=== PATIENT | female | born 1935 | race Asian ===

== ENCOUNTER 2020-07-11 21:09 | Emergency (ER) | payer BC ==
[~2020-07-11] VITALS: Ht 149.9 cm; Wt 46.4 kg
[2020-07-11] MEDS ORDERED: ACETAMINOPHEN ES 500 MG TABLET ONE (21:25)
[2020-07-11] MEDS ORDERED: ACETAMINOPHEN ES 500 MG TABLET PO ONE (21:30)
[2020-07-11 21:54] VITALS: BP 128/77
--- NOTE | 2020-07-11 21:54 | NUR ---
Patient discharged to home in stable condition. Written and verbal after care instructions given. Patient verbalizes understanding of instructions. Stressed follow up or return to ER for worsening s/s. Ambulated from ER with stable gait. All belongings with patient. VSS
== END 2020-07-11 21:55 | disposition home or self-care (01) ==
LOC: ER 21:12
DX: M25.512 Pain in left shoulder (principal); Z91.81 History of falling; E11.9 Type 2 diabetes mellitus without complications
CPT/HCPCS: 73030; A4663; A9150

== ENCOUNTER 2020-07-23 20:52 | Emergency (ER) | payer BC ==
[~2020-07-23] VITALS: Ht 149.9 cm; Wt 45.4 kg
--- NOTE | 2020-07-23 21:08 | NUR ---
Dr. Goldstein at bedside for MSE.
[2020-07-23] MEDS ORDERED: HYDROCODONE/APAP 5-325MG TABLET PO ONE (21:15)
[2020-07-23] MEDS ORDERED: HYDROCODONE/APAP 5-325MG TABLET ONE (21:18)
--- NOTE | 2020-07-23 21:26 | NUR ---
Pt out of ER for CT.
[2020-07-23 21:32] LABS: BASOPHILS # (AUTO) 0.1 K/uL (0.0-8.0); BASOPHILS % (AUTO) 1.2 % (0.0-2.0); EOSINOPHILS # (AUTO) 0.7 K/uL (0.0-0.7); EOSINOPHILS % (AUTO) 10.9 % (0.0-7.0); HEMATOCRIT 38.3 % (31.2-41.9); HEMOGLOBIN 12.7 g/dL (10.9-14.3); LYMPHOCYTES % (AUTO) 31.9 % (20.5-51.5); MEAN CORPUSCULAR HEMOGLOBIN 30.7 uug (24.7-32.8); MEAN CORPUSCULAR HGB CONC 33 g/dL (32.3-35.6); MEAN CORPUSCULAR VOLUME 92.6 fL (75.5-95.3); MONOCYTES # (AUTO) 0.5 K/uL (2.0-10.0); MONOCYTES % (AUTO) 7.4 % (0.0-11.0); NEUTROPHILS # (AUTO) 3.1 K/uL (1.8-8.9); NEUTROPHILS % (AUTO) 48.6 % (38.5-71.5); PLATELET COUNT (AUTO) 286 K/uL (179-408); RED BLOOD CELL COUNT(AUTO) 4.13 MIL/uL (3.63-4.92); WHITE BLOOD COUNT (AUTO) 6.4 K/uL (3.8-11.8)
[2020-07-23 21:38] LABS: CREATININE 1.3 mg/dL (0.6-1.3); POTASSIUM 3.7 mmol/L (3.5-5.1)
[2020-07-23 21:43] LABS: BILIRUBIN,DIRECT 0.1 mg/dL (0.0-0.2); BILIRUBIN,TOTAL 0.3 mg/dL (0.2-1.0); TOTAL PROTEIN, SERUM 7.3 g/dL (6.4-8.2)
--- NOTE | 2020-07-23 21:45 | NUR ---
Pt back to ER from CT.
[2020-07-23 21:50] LABS: THYROID STIMULATING HORMONE 2.038 mIU/mL (0.358-3.740)
[2020-07-23] MEDS ORDERED: MAGNESIUM OXIDE 400 MG TABLET PO ONE (22:00)
--- NOTE | 2020-07-23 22:02 | NUR ---
Pt provided urine sample, sent to lab.
[2020-07-23] MEDS ORDERED: MAGNESIUM OXIDE 400 MG TABLET ONE (22:11)
[2020-07-23 22:17] LABS: *BILIRUBIN,URIN NEGATIVE (NEGATIVE); *BLOOD, URINE NEGATIVE (NEGATIVE); *CLARITY,URINE CLEAR (CLEAR); *COLOR,URINE YELLOW (YELLOW); *KETONES,URINE NEGATIVE (NEGATIVE); *UROBILINOGEN,URINE 0.2 E.U./dl (NORMAL); LEUKOCYTE ESTERASE ,URINE NEGATIVE (NEGATIVE); NITRITE, URINE NEGATIVE (NEGATIVE); UGLUCOSE NEGATIVE (NEGATIVE)
--- NOTE | 2020-07-23 22:37 | NUR ---
Patient discharged to home in stable condition. Written and verbal after care instructions given. Patient verbalizes understanding of instructions. Stressed follow up or return to ER for worsening s/s. Patient out of ER with steady gait, no acute signs of distress, VSS, all belongings taken, provided with copies and CD of diagnostic procedures, to be driven home by daughter via private vehicle.
[2020-07-23 22:40] VITALS: BP 140/50
== END 2020-07-23 22:44 | disposition home or self-care (01) ==
LOC: ER 20:54
DX: S43.402A Unspecified sprain of left shoulder joint, initial encounter (principal); W10.9XXA Fall (on) (from) unspecified stairs and steps, initial encounter; Y92.89 Other specified places as the place of occurrence of the external cause; S09.90XA Unspecified injury of head, initial encounter; E83.42 Hypomagnesemia; I10 Essential (primary) hypertension; E11.9 Type 2 diabetes mellitus without complications; G20 Parkinson's disease; Z72.0 Tobacco use; Z95.1 Presence of aortocoronary bypass graft; E78.5 Hyperlipidemia, unspecified; R94.31 Abnormal electrocardiogram [ECG] [EKG]; M50.30 Other cervical disc degeneration, unspecified cervical region
CPT/HCPCS: 36415; 70030-TC; 70450; 71045; 72125; 73060; 83735; 84443; 85025; 93005; A4663

== ENCOUNTER 2020-11-27 18:39 | Emergency (ER) | payer BC, OTHER ==
[~2020-11-27] VITALS: Ht 147.3 cm; Wt 45.4 kg
[2020-11-27] MEDS ORDERED: FLUCONAZOLE 100 MG TABLET PO ONE (19:00)
[2020-11-27] MEDS ORDERED: ONDANSETRON ODT 4 MG TAB.RAPDIS SL ONE (19:00)
--- NOTE | 2020-11-27 19:02 | NUR ---
PT IS IN ROOM #2A. DR MULLIGAN EVALUATED THE PT.
[2020-11-27] MEDS ORDERED: ONDANSETRON HCL 4 MG TABLET ONE (19:21)
[2020-11-27] MEDS ORDERED: FLUCONAZOLE 100 MG TABLET ONE (19:21)
[2020-11-27] MEDS ORDERED: ONDANSETRON ODT 4 MG TAB.RAPDIS ONE (19:22)
--- NOTE | 2020-11-27 19:25 | NUR ---
Pt w/in from home, came in with dtr, c/o weakness and vaginal itching x few days [employer]. Pt is diabetic, blood sugar: 86. AO x 4 at this time. Not in acute distress. PIV done, and labs sent. Dtr at bedside. Went to CT, left in stable condition.
[2020-11-27 19:36] LABS: BASOPHILS # (AUTO) 0.1 K/uL (0.0-8.0); BASOPHILS % (AUTO) 1.1 % (0.0-2.0); EOSINOPHILS # (AUTO) 0.6 K/uL (0.0-0.7); EOSINOPHILS % (AUTO) 8.4 % (0.0-7.0); HEMATOCRIT 38.8 % (31.2-41.9); LYMPHOCYTES # (AUTO) 2.3 K/uL (20.0-40.0); LYMPHOCYTES % (AUTO) 33.3 % (20.5-51.5); MEAN CORPUSCULAR HEMOGLOBIN 31.8 uug (24.7-32.8); MEAN CORPUSCULAR HGB CONC 34 g/dL (32.3-35.6); MONOCYTES # (AUTO) 0.5 K/uL (2.0-10.0); MONOCYTES % (AUTO) 7.9 % (0.0-11.0); NEUTROPHILS # (AUTO) 3.4 K/uL (1.8-8.9); NEUTROPHILS % (AUTO) 49.3 % (38.5-71.5); PLATELET COUNT (AUTO) 290 K/uL (179-408); RED BLOOD CELL COUNT(AUTO) 4.08 MIL/uL (3.63-4.92); WHITE BLOOD COUNT (AUTO) 6.8 K/uL (3.8-11.8)
[2020-11-27 19:39] LABS: POTASSIUM 4.4 mmol/L (3.5-5.1)
[2020-11-27 19:45] LABS: BILIRUBIN,DIRECT 0.2 mg/dL (0.0-0.2); BILIRUBIN,TOTAL 0.6 mg/dL (0.2-1.0); TOTAL PROTEIN, SERUM 7.6 g/dL (6.4-8.2)
--- NOTE | 2020-11-27 19:45 | NUR ---
Pt back from CT in stable condition.
--- NOTE | 2020-11-27 20:45 | NUR ---
Blood sugar rechecked: 92. Pt has been cleared for DC by ER MD. IV removed. Catheter intact and site benign. Pressure and 4x4 gauze applied to site. No bleeding noted.Patient discharged to home in stable condition. Written and verbal after care instructions given. Patient and daughter, verbalizes understanding of instructions. Stressed follow up or return to ER for worsening s/s. Ambulated out of ED in steady gait, with daughter.
[2020-11-27 21:51] VITALS: BP 120/70
== END 2020-11-27 20:45 | disposition home or self-care (01) ==
LOC: ER 18:40
DX: R53.1 Weakness (principal); R11.0 Nausea; I10 Essential (primary) hypertension; E11.9 Type 2 diabetes mellitus without complications; Z87.891 Personal history of nicotine dependence; E78.00 Pure hypercholesterolemia, unspecified; Z86.16 Personal history of COVID-19; R94.31 Abnormal electrocardiogram [ECG] [EKG]
CPT/HCPCS: 36415; 71045; 83690; 85025; 93005; A4663; Q0162

== ENCOUNTER 2021-09-16 17:29 | Emergency (ER) | payer OTHER ==
[~2021-09-16] VITALS: Ht 147.3 cm; Wt 40.8 kg
[2021-09-16] MEDS ORDERED: CARVEDILOL (18:10)
[2021-09-16] MEDS ORDERED: METFORMIN (18:10)
[2021-09-16] MEDS ORDERED: LOSARTAN (18:10)
[2021-09-16 20:01] VITALS: BP 131/77
--- NOTE | 2021-09-16 20:01 | NUR ---
Patient discharged to home in stable condition. Written and verbal after care instructions given. Patient verbalizes understanding of instructions. Stressed follow up or return to ER for worsening s/s.PT WALKS IN STEADY GAIT, PT ACCOMPANIED BY FAMILY MEMBER
--- NOTE | 2021-09-16 20:33 | NUR ---
EKG ORDERED ON WRONG PATIENT.
== END 2021-09-16 20:00 | disposition home or self-care (01) ==
LOC: ER 17:32
DX: S00.81XA Abrasion of other part of head, initial encounter (principal); S80.211A Abrasion, right knee, initial encounter; W01.0XXA Fall on same level from slipping, tripping and stumbling without subsequent striking against object, initial encounter; Y92.89 Other specified places as the place of occurrence of the external cause; I10 Essential (primary) hypertension; Z95.1 Presence of aortocoronary bypass graft; E11.9 Type 2 diabetes mellitus without complications; Z79.84 Long term (current) use of oral hypoglycemic drugs; Z79.899 Other long term (current) drug therapy; Z86.16 Personal history of COVID-19; M50.30 Other cervical disc degeneration, unspecified cervical region; M25.78 Osteophyte, vertebrae; E78.00 Pure hypercholesterolemia, unspecified
CPT/HCPCS: 70450; 70486; 72125; 93005; A4663

== ENCOUNTER 2022-04-13 13:38 | Emergency (ER) | payer OTHER ==
[~2022-04-13] VITALS: Ht 147.3 cm; Wt 40.8 kg
[~2022-04-13 13:38] MED LIST: CARVEDILOL PO; LOSARTAN PO; METFORMIN PO
--- NOTE | 2022-04-13 14:10 | NUR ---
Dr Paiz at the bedside for MSE.
[2022-04-13] MEDS ORDERED: IV NORMAL SALINE 500 ML BAG IV ONE (14:15)
[2022-04-13 14:31] LABS: HEMATOCRIT 37.4 % (31.2-41.9); MEAN CORPUSCULAR HEMOGLOBIN 31.5 uug (24.7-32.8); MEAN CORPUSCULAR VOLUME 92.1 fL (75.5-95.3); PLATELET COUNT (AUTO) 307 K/uL (179-408)
[2022-04-13 14:37] LABS: CARBON DIOXIDE 26 mmol/L (21-32); CHLORIDE 102 mmol/L (98-107); CREATININE 0.9 mg/dL (0.6-1.3); GLUCOSE 94 mg/dL (74-106); POTASSIUM 4.4 mmol/L (3.5-5.1); UREA NITROGEN, BLOOD 15 mg/dL (7-18)
[2022-04-13 14:49] LABS: ALANINE AMINOTRANSFERASE 22 U/L (14-59); ALKALINE PHOSPHATASE 36 U/L (50-136); ASPARTATE AMINOTRANSFERASE 14 U/L (15-37); BILIRUBIN,DIRECT 0.1 mg/dL (0.0-0.2); BILIRUBIN,TOTAL 0.5 mg/dL (0.2-1.0); TOTAL PROTEIN, SERUM 7.7 g/dL (6.4-8.2)
[2022-04-13] MEDS ORDERED: MAGNESIUM SULFATE/D5W 100 ML IV STA (15:06)
[2022-04-13] MEDS ORDERED: MAGNESIUM SULFATE/D5W 100 ML ONE (15:10)
[2022-04-13 15:19] LABS: *BILIRUBIN,URIN NEGATIVE (NEGATIVE); *COLOR,URINE YELLOW (YELLOW); *KETONES,URINE NEGATIVE (NEGATIVE); *UROBILINOGEN,URINE 0.2 E.U./dl (NORMAL); LEUKOCYTE ESTERASE ,URINE 1+ (NEGATIVE); NITRITE, URINE POSITIVE (NEGATIVE); UGLUCOSE NEGATIVE (NEGATIVE)
[2022-04-13 15:20] LABS: *BLOOD, URINE TRACE (NEGATIVE); *CLARITY,URINE SLIGHTLY CLOUDY (CLEAR)
--- NOTE | 2022-04-13 15:20 | NUR ---
Pt assissted to bathroom by daughter, Urine sent to LAB.
[2022-04-13] MEDS ORDERED: NITROFURANTOIN/NITROFURAN MAC 100 MG CAPSULE PO ONE ×2 (15:30→15:46)
[2022-04-13] MEDS ORDERED: NITR100C11 PO (16:41)
--- NOTE | 2022-04-13 16:52 | NUR ---
IV removed. Catheter intact and site benign. Pressure and 4x4 gauze applied to site. No bleeding noted.
[2022-04-13 16:54] VITALS: BP 144/78
--- NOTE | 2022-04-13 16:58 | NUR ---
Patient discharged to home in stable condition. Written and verbal after care instructions given. Patient verbalizes understanding of instructions. Stressed follow up or return to ER for worsening s/s.
[2022-04-13 21:19] LABS: BACTERIA,URINE MODERATE /HPF (NONE SEEN); SQUAMOUS EPITHELIAL CELL,UR FEW /HPF (NONE SEEN)
== END 2022-04-13 16:59 | disposition home or self-care (01) ==
LOC: ER 14:14
DX: N39.0 Urinary tract infection, site not specified (principal); E83.42 Hypomagnesemia; E11.9 Type 2 diabetes mellitus without complications; Z79.84 Long term (current) use of oral hypoglycemic drugs; I10 Essential (primary) hypertension; Z86.16 Personal history of COVID-19; F17.200 Nicotine dependence, unspecified, uncomplicated
CPT/HCPCS: 36415; 80048; 80076; 81001; 83735; 84484; 85025; 87086; 93005; 96361; 96365; 99284; J3475; J7040; 87077; A4663

== ENCOUNTER 2022-11-02 12:50 | Emergency (ER) | payer OTHER ==
[~2022-11-02] VITALS: Ht 157.5 cm; Wt 56.7 kg
[~2022-11-02 12:50] MED LIST changes: +NITR100C11 PO
--- NOTE | 2022-11-02 13:17 | NUR ---
Dr. Whitfield at bedside for eval.
--- NOTE | 2022-11-02 13:24 | NUR ---
Female steel box toe inserter accompanied female patient for Dr. Whitfield.
[2022-11-02] MEDS ORDERED: ATOR20TA PO (13:28)
[2022-11-02] MEDS ORDERED: PANT40TA49 PO (13:28)
[2022-11-02] MEDS ORDERED: ASPI81TA31 PO (13:28)
[2022-11-02] MEDS ORDERED: FLUCONAZOLE 100 MG TABLET ONE (13:29)
[2022-11-02] MEDS ORDERED: FLUCONAZOLE 100 MG TABLET PO ONE (13:30)
[2022-11-02 13:43] LABS: *BILIRUBIN,URIN NEGATIVE (NEGATIVE); *BLOOD, URINE NEGATIVE (NEGATIVE); *CLARITY,URINE CLEAR (CLEAR); *COLOR,URINE LIGHT YELLOW (YELLOW); *KETONES,URINE NEGATIVE (NEGATIVE); *UROBILINOGEN,URINE 0.2 E.U./dl (NORMAL); LEUKOCYTE ESTERASE ,URINE 1+ (NEGATIVE); NITRITE, URINE POSITIVE (NEGATIVE); UGLUCOSE NEGATIVE (NEGATIVE)
[2022-11-02 13:58] LABS: RBC,URINE 0-3 /HPF (0-3)
[2022-11-02 13:59] LABS: BACTERIA,URINE MANY /HPF (NONE SEEN); SQUAMOUS EPITHELIAL CELL,UR FEW /HPF (NONE SEEN)
[2022-11-02] MEDS ORDERED: CEPH500T PO (14:02)
[2022-11-02 14:41] VITALS: BP 154/82
== END 2022-11-02 14:00 | disposition home or self-care (01) ==
LOC: ER 12:54
DX: L29.8 Other pruritus (principal); N39.0 Urinary tract infection, site not specified; E11.9 Type 2 diabetes mellitus without complications; G20 Parkinson's disease; I10 Essential (primary) hypertension; E78.5 Hyperlipidemia, unspecified; I25.10 Atherosclerotic heart disease of native coronary artery without angina pectoris; Z95.1 Presence of aortocoronary bypass graft; Z79.84 Long term (current) use of oral hypoglycemic drugs; Z79.899 Other long term (current) drug therapy; Z79.82 Long term (current) use of aspirin
CPT/HCPCS: A4663

== ENCOUNTER 2023-02-06 02:50 | Inpatient (IN) | payer OTHER ==
[~2023-02-06] VITALS: Ht 139.7 cm; Wt 45.4 kg
[~2023-02-06 02:50] MED LIST changes: +ASPI81TA31 PO; +ATOR20TA PO; +CEPH500T PO; +PANT40TA49 PO
[2023-02-06] MEDS ORDERED: NITROGLYCERIN 0.4 MG/TAB BOTTLE SL ONE ×3 (03:15→06:15)
[2023-02-06] MEDS ORDERED: NITROGLYCERIN OINT 1 GM PACKET TP ONE ×2 (03:15→03:40)
[2023-02-06] MEDS ORDERED: ASPIRIN 81 MG TAB.CHEW PO ONE (03:15)
[2023-02-06] MEDS ORDERED: ASPIRIN 81 MG TAB.CHEW ONE (03:40)
[2023-02-06 03:43] LABS: HEMATOCRIT 36.1 % (31.2-41.9); MEAN CORPUSCULAR HEMOGLOBIN 31.7 uug (24.7-32.8); MEAN CORPUSCULAR VOLUME 93.8 fL (75.5-95.3); PLATELET COUNT (AUTO) 363 K/uL (179-408)
[2023-02-06 03:58] LABS: CARBON DIOXIDE 28 mmol/L (21-32); CHLORIDE 102 mmol/L (98-107); CREATININE 1.5 mg/dL (0.6-1.3); GLUCOSE 277 mg/dL (74-106); POTASSIUM 3.9 mmol/L (3.5-5.1); UREA NITROGEN, BLOOD 36 mg/dL (7-18)
[2023-02-06] MEDS ORDERED: MAGNESIUM SULFATE/D5W 200 ML ONE (04:05)
[2023-02-06 04:11] LABS: ALANINE AMINOTRANSFERASE 25 U/L (14-59); ALKALINE PHOSPHATASE 94 U/L (50-136); ASPARTATE AMINOTRANSFERASE 20 U/L (15-37); BILIRUBIN,DIRECT 0.1 mg/dL (0.0-0.2); BILIRUBIN,TOTAL 0.2 mg/dL (0.2-1.0); TOTAL PROTEIN, SERUM 7.9 g/dL (6.4-8.2)
[2023-02-06] MEDS: MAGNESIUM SULFATE/D5W 100 ML IV SCH ×2 (04:15→05:00)
[2023-02-06] MEDS ORDERED: ENOXAPARIN SODIUM 40 MG/0.4 ML DISP.SYRIN SQ ONE ×3 (04:15→05:00)
[2023-02-06] MEDS ORDERED: IV NORMAL SALINE 500 ML BAG IV ONE (05:15)
[2023-02-06] MEDS ORDERED: DEXTROSE 50% 50 ML DISP.SYRIN IV PRN ×2 (06:15→20:30)
[2023-02-06] MEDS ORDERED: ONDANSETRON 4 MG/2 ML VIAL IV PRN (06:15)
[2023-02-06] MEDS ORDERED: REMEDY ESSENTIAL ZINC PASTE 113 GM TP PRN (06:15)
[2023-02-06] MEDS ORDERED: MAGNESIUM HYDROXIDE 30 ML LIQUID UDC PO PRN (06:15)
[2023-02-06] MEDS ORDERED: ACETAMINOPHEN 325 MG TABLET PO PRN (06:15)
[2023-02-06] MEDS ORDERED: NITR0.4T48 SL (06:45)
[2023-02-06] MEDS ORDERED: ISOS60TA72 PO (06:45)
[2023-02-06] MEDS ORDERED: FURO40TA5 PO (06:45)
[2023-02-06] MEDS ORDERED: METO-356 PO (06:45)
[2023-02-06] MEDS ORDERED: PANT40TA2 PO (06:45)
[2023-02-06] MEDS ORDERED: LACTULOSE 20 G/30 ML LIQUID UDC PO ONE (08:00)
[2023-02-06] MEDS ORDERED: MAG HYDROX/AL HYDROX/SIMETH 30 ML LIQUID UDC PO ONE (08:00)
[2023-02-06] MEDS ORDERED: PANTOPRAZOLE SODIUM 40 MG TABLET.DR PO SCH (08:00)
[2023-02-06] MEDS ORDERED: CARVEDILOL 12.5 MG TABLET PO SCH (08:00)
[2023-02-06 08:03] VITALS: BP 148/83
[2023-02-06] MEDS: BLOOD SUGAR DIAGNOSTIC 1 EACH STRIP VI SCH ×4 (08:19→23:17)
[2023-02-06] MEDS: INSULIN REGULAR, HUMAN 300 UNIT/3 ML VIAL SQ PRN ×4 (08:21→23:24)
[2023-02-06] MEDS: RANOLAZINE 500 MG TAB.ER.12H PO SCH ×2 (08:32→21:18)
[2023-02-06] MEDS: ASPIRIN 81 MG TAB.CHEW PO SCH (08:32)
[2023-02-06] MEDS: METOPROLOL SUCCINATE XL 50 MG TAB.SR.24H PO SCH (08:32)
[2023-02-06] MEDS ORDERED: ISOSORBIDE MONONITRATE 30 MG TAB.SR.24H PO SCH ×2 (09:00)
[2023-02-06] MEDS ORDERED: IV D5 1/2 NS 1000 ML 1,000 ML IV PRN (10:30)
[2023-02-06 16:30] VITALS: BP 166/85
[2023-02-06] MEDS ORDERED: NITROGLYCERIN 0.4 MG/TAB BOTTLE SL PRN (17:45)
[2023-02-06 20:00] VITALS: BP 122/72
[2023-02-06] MEDS ORDERED: ACETAMINOPHEN 650 MG SUPP.RECT RC PRN (20:15)
[2023-02-06] MEDS ORDERED: ATORVASTATIN 40 MG TABLET PO SCH (21:00)
[2023-02-07] VITALS: BP 126/71
[2023-02-07 03:54] VITALS: BP 114/66
[2023-02-07] MEDS: BLOOD SUGAR DIAGNOSTIC 1 EACH STRIP VI SCH ×2 (05:36→12:01)
[2023-02-07] MEDS: INSULIN REGULAR, HUMAN 300 UNIT/3 ML VIAL SQ PRN (05:40)
[2023-02-07 06:07] LABS: MAGNESIUM 1.8 mg/dL (1.8-2.4); PHOSPHOROUS 3.3 mg/dL (2.5-4.9); POTASSIUM 3.7 mmol/L (3.5-5.1)
[2023-02-07 06:15] LABS: HEMATOCRIT 34.1 % (31.2-41.9); MEAN CORPUSCULAR HEMOGLOBIN 31.4 uug (24.7-32.8); MEAN CORPUSCULAR VOLUME 94.1 fL (75.5-95.3); PLATELET COUNT (AUTO) 345 K/uL (179-408)
[2023-02-07] MEDS: RANOLAZINE 500 MG TAB.ER.12H PO SCH (08:19)
[2023-02-07] MEDS: METFORMIN HCL 500 MG TABLET PO SCH ×2 (08:19→17:12)
[2023-02-07] MEDS: METOPROLOL SUCCINATE XL 50 MG TAB.SR.24H PO SCH (08:19)
[2023-02-07] MEDS: PANTOPRAZOLE SODIUM 40 MG TABLET.DR PO SCH ×2 (08:19→17:12)
[2023-02-07] MEDS: ASPIRIN 81 MG TAB.CHEW PO SCH (08:20)
[2023-02-07] MEDS ORDERED: FUROSEMIDE 40 MG TABLET PO SCH (09:00)
[2023-02-07] MEDS ORDERED: METOPROLOL SUCCINATE XL 25 MG TAB.SR.24H PO SCH (09:00)
[2023-02-07] MEDS ORDERED: ATORVASTATIN 20 MG TABLET PO SCH (09:00)
[2023-02-07] MEDS ORDERED: ISOSORBIDE MONONITRATE 30 MG TAB.SR.24H PO SCH (09:00)
[2023-02-07] MEDS ORDERED: ASPIRIN 81 MG TAB.CHEW PO SCH (09:00)
[2023-02-07] MEDS ORDERED: ISOS60TA72 PO (11:02)
[2023-02-07] MEDS ORDERED: METO-356 PO (11:02)
[2023-02-07] MEDS ORDERED: RANO500T3 PO (11:02)
[2023-02-07 11:32] VITALS: BP 120/80
[2023-02-07 13:43] VITALS: BP 118/75
== END 2023-02-07 17:35 | disposition home or self-care (01) | DRG 438 ==
LOC: ER 02:52 → TELE3 07:05
PROVIDERS: ADMIT Nurse Practitioner Acute Care; ATTEND Registered Nurse
DX: K85.90 Acute pancreatitis without necrosis or infection, unspecified (principal); N17.0 Acute kidney failure with tubular necrosis; I25.10 Atherosclerotic heart disease of native coronary artery without angina pectoris; Z98.61 Coronary angioplasty status; Z95.1 Presence of aortocoronary bypass graft; K59.00 Constipation, unspecified; I13.10 Hypertensive heart and chronic kidney disease without heart failure, with stage 1 through stage 4 chronic kidney disease, or unspecified chronic kidney disease; E11.22 Type 2 diabetes mellitus with diabetic chronic kidney disease; N18.9 Chronic kidney disease, unspecified; Z79.84 Long term (current) use of oral hypoglycemic drugs; T50.2X5A Adverse effect of carbonic-anhydrase inhibitors, benzothiadiazides and other diuretics, initial encounter; Y92.89 Other specified places as the place of occurrence of the external cause; E78.5 Hyperlipidemia, unspecified; K21.9 Gastro-esophageal reflux disease without esophagitis; Z79.82 Long term (current) use of aspirin; Z79.899 Other long term (current) drug therapy; G20 Parkinson's disease; F17.210 Nicotine dependence, cigarettes, uncomplicated; E83.42 Hypomagnesemia
CPT/HCPCS: 36415; 71045; 83690; 83735; 84100; 84484; 85025; 93005; A4663; G0378; J1650; J1815; J3475; J7040; J7042

== ENCOUNTER 2024-01-11 13:01 | Emergency (ER) | payer OTHER ==
[~2024-01-11] VITALS: Ht 134.6 cm; Wt 43.1 kg
[~2024-01-11 13:01] MED LIST changes: -ASPI81TA31 PO; +CARV6.252 PO; -CARVEDILOL PO; -CEPH500T PO; +LOSA100T31 PO; -LOSARTAN PO; +NITR0.4T SL; -NITR100C11 PO; +PANT40TA2 PO; -PANT40TA49 PO
[2024-01-11 13:42] LABS: BASOPHILS # (AUTO) 0.1 K/UL (0.0-0.2); BASOPHILS % (AUTO) 0.7 % (0.0-2.0); EOSINOPHILS # (AUTO) 0.4 K/uL (0.0-0.7); HEMATOCRIT 39.7 % (31.2-41.9); HEMOGLOBIN 13.5 g/dL (10.9-14.3); LYMPHOCYTES # (AUTO) 1.8 K/uL (0.8-4.8); LYMPHOCYTES % (AUTO) 15.9 % (20.5-51.5); MEAN CORPUSCULAR HEMOGLOBIN 31.1 uug (24.7-32.8); MEAN CORPUSCULAR HGB CONC 34 g/dL (32.3-35.6); MEAN CORPUSCULAR VOLUME 91.2 fL (75.5-95.3); MONOCYTES # (AUTO) 0.8 K/uL (0.1-1.30); MONOCYTES % (AUTO) 7.1 % (0.0-11.0); NEUTROPHILS # (AUTO) 8.1 K/uL (1.8-8.9); NEUTROPHILS % (AUTO) 72.3 % (38.5-71.5); PLATELET COUNT (AUTO) 328 K/uL (179-408); RED BLOOD CELL COUNT(AUTO) 4.35 MIL/uL (3.63-4.92); RED CELL DISTRIBUTION WIDTH 13.1 % (12.3-17.7); WHITE BLOOD COUNT (AUTO) 11.2 K/uL (3.8-11.8)
[2024-01-11 13:44] LABS: DIFFERENTIAL COMMENT 1
[2024-01-11] MEDS: IV NORMAL SALINE 500 ML BAG IV ONE (13:44)
[2024-01-11 14:01] LABS: ALANINE AMINOTRANSFERASE 20 U/L (14-59); ALBUMIN 3.6 g/dL (3.4-5.0); ALKALINE PHOSPHATASE 83 U/L (50-136); ASPARTATE AMINOTRANSFERASE 10 U/L (15-37); BILIRUBIN,DIRECT 0.2 mg/dL (0.0-0.2); BILIRUBIN,TOTAL 0.5 mg/dL (0.2-1.0); CALCIUM 9.1 mg/dL (8.5-10.1); CARBON DIOXIDE 24 mmol/L (21-32); CHLORIDE 104 mmol/L (98-107); CREATININE 1.3 mg/dL (0.6-1.3); GLUCOSE 252 mg/dL (74-106); NT-PRO BNP 70 pg/mL (0-125); POTASSIUM 4.7 mmol/L (3.5-5.1); SODIUM SERUM 140 mmol/L (136-145); TOTAL PROTEIN, SERUM 8.3 g/dL (6.4-8.2); UREA NITROGEN, BLOOD 24 mg/dL (7-18)
[2024-01-11] MEDS ORDERED: CEFTRIAXONE /D5W 50ML IVPB **ER PYXIS IV ONE (14:27)
[2024-01-11] MEDS ORDERED: CYANOCOBALAMIN 1000 MCG/ML VIAL ONE (14:28)
[2024-01-11] MEDS: CYANOCOBALAMIN 1000 MCG/ML VIAL IM ONE (14:36)
[2024-01-11] MEDS: CEFTRIAXONE 1 G in IV DEXTROSE 5% 50 ML IV ONE (14:37)
[2024-01-11 14:52] LABS: *BILIRUBIN,URIN NEGATIVE (NEGATIVE); *BLOOD, URINE NEGATIVE (NEGATIVE); *CLARITY,URINE CLEAR (CLEAR); *COLOR,URINE Orange (YELLOW); *KETONES,URINE NEGATIVE (NEGATIVE); *PROTEIN,URINE 1+ (NEGATIVE); LEUKOCYTE ESTERASE ,URINE NEGATIVE (NEGATIVE); NITRITE, URINE POSITIVE (NEGATIVE); PH,URINE 5.5 (5.0-8.0); UGLUCOSE TRACE (NEGATIVE)
[2024-01-11] MEDS ORDERED: CEPH500C2 PO (15:28)
[2024-01-11] MEDS ORDERED: PRED10TA PO (15:28)
[2024-01-11 15:34] VITALS: BP 154/81; O2SAT 96
[2024-01-11 15:43] LABS: RBC,URINE 0-3 /HPF (0-3); WBC,URINE 0-3 /HPF (0-3)
[2024-01-11 15:44] LABS: BACTERIA,URINE MODERATE /HPF (NONE SEEN); SQUAMOUS EPITHELIAL CELL,UR MODERATE /HPF (NONE SEEN)
== END 2024-01-11 15:35 | disposition home or self-care (01) ==
LOC: ER 13:01
DX: N39.0 Urinary tract infection, site not specified (principal); K21.9 Gastro-esophageal reflux disease without esophagitis; E11.9 Type 2 diabetes mellitus without complications; F17.200 Nicotine dependence, unspecified, uncomplicated; Z98.890 Other specified postprocedural states; Z79.899 Other long term (current) drug therapy
CPT/HCPCS: 99285; 96365; 71045; 87804 ×2; 80076; 80048; 81001; 83880; 85025; 93005; 96372; 83605; J0696; J3420; J7040; 36415; A4606; A4663

== ENCOUNTER 2025-01-29 13:13 | Emergency (ER) | payer OTHER ==
[~2025-01-29] VITALS: Ht 139.7 cm; Wt 45.4 kg
[~2025-01-29 13:13] MED LIST changes: +CEPH500C2 PO
[2025-01-29 14:07] LABS: *BILIRUBIN,URIN NEGATIVE (NEGATIVE); *BLOOD, URINE NEGATIVE (NEGATIVE); *CLARITY,URINE CLEAR (CLEAR); *COLOR,URINE YELLOW (YELLOW); *KETONES,URINE NEGATIVE (NEGATIVE); *PROTEIN,URINE NEGATIVE (NEGATIVE); *UROBILINOGEN,URINE 0.2 E.U./dl (NORMAL); BASOPHILS # (AUTO) 0.1 K/UL (0.0-0.2); BASOPHILS % (AUTO) 1.5 % (0.0-2.0); EOSINOPHILS # (AUTO) 1.4 K/uL (0.0-0.7); EOSINOPHILS % (AUTO) 18.8 % (0.0-7.0); HEMATOCRIT 38.8 % (31.2-41.9); HEMOGLOBIN 12.8 g/dL (10.9-14.3); LEUKOCYTE ESTERASE ,URINE TRACE (NEGATIVE); LYMPHOCYTES # (AUTO) 2.2 K/uL (0.8-4.8); LYMPHOCYTES % (AUTO) 30.2 % (20.5-51.5); MEAN CORPUSCULAR HEMOGLOBIN 31.3 uug (24.7-32.8); MEAN CORPUSCULAR HGB CONC 33 g/dL (32.3-35.6); MEAN CORPUSCULAR VOLUME 94.8 fL (75.5-95.3); MONOCYTES # (AUTO) 0.5 K/uL (0.1-1.30); MONOCYTES % (AUTO) 7.1 % (0.0-11.0); NEUTROPHILS # (AUTO) 3.2 K/uL (1.8-8.9); NEUTROPHILS % (AUTO) 42.4 % (38.5-71.5); NITRITE, URINE NEGATIVE (NEGATIVE); PH,URINE 5.5 (5.0-8.0); PLATELET COUNT (AUTO) 334 K/uL (179-408); RED BLOOD CELL COUNT(AUTO) 4.09 MIL/uL (3.63-4.92); RED CELL DISTRIBUTION WIDTH 13.2 % (12.3-17.7); UGLUCOSE NEGATIVE (NEGATIVE); WHITE BLOOD COUNT (AUTO) 7.4 K/uL (3.8-11.8)
[2025-01-29 14:08] LABS: DIFFERENTIAL COMMENT 1
[2025-01-29 14:09] LABS: BACTERIA,URINE FEW /HPF (NONE SEEN); SQUAMOUS EPITHELIAL CELL,UR FEW /HPF (NONE SEEN)
[2025-01-29 14:10] LABS: URINE AMORPHOUS URATE FEW /HPF
[2025-01-29 14:13] LABS: CALCIUM 9.4 mg/dL (8.5-10.1); CARBON DIOXIDE 22 mmol/L (21-32); CHLORIDE 105 mmol/L (98-107); CREATININE 1.1 mg/dL (0.6-1.3); GLUCOSE 237 mg/dL (74-106); POTASSIUM 4.7 mmol/L (3.5-5.1); SODIUM SERUM 140 mmol/L (136-145); UREA NITROGEN, BLOOD 21 mg/dL (7-18)
[2025-01-29] MEDS: IV NORMAL SALINE 1000 ML BAG IV ONE (14:56)
[2025-01-29] MEDS ORDERED: CEFTRIAXONE /D5W 50ML IVPB **ER PYXIS IV ONE (14:57)
[2025-01-29] MEDS: CEFTRIAXONE 1 G in IV DEXTROSE 5% 50 ML IV ONE (14:57)
[2025-01-29] MEDS ORDERED: LACT10SO58 PO (15:16)
[2025-01-29] MEDS ORDERED: LEVO500T90 PO (15:16)
[2025-01-29] MEDS ORDERED: FLUC200T PO (16:29)
[2025-01-29 16:46] VITALS: BP 148/76; O2SAT 100
== END 2025-01-29 16:53 | disposition home or self-care (01) ==
LOC: ER 13:13
DX: R06.03 Acute respiratory distress (principal); N39.0 Urinary tract infection, site not specified; E11.9 Type 2 diabetes mellitus without complications; E86.0 Dehydration; G20.C Parkinsonism, unspecified; F17.210 Nicotine dependence, cigarettes, uncomplicated; Z79.899 Other long term (current) drug therapy; Z86.16 Personal history of COVID-19
CPT/HCPCS: 99285; 96365; 71045; 80048; 81001; 85025; 85730; 87086; 36415; 93005 ×2; J0696; J7040; A4606; A4663

== ENCOUNTER 2025-02-03 18:45 | Inpatient (IN) | payer OTHER ==
[~2025-02-03] VITALS: Ht 139.7 cm; Wt 46.3 kg
[~2025-02-03 18:45] MED LIST changes: +FLUC200T PO; +LACT10SO58 PO; +LEVO500T90 PO
[2025-02-03 19:23] LABS: BASOPHILS % (AUTO) 0.7 % (0.0-2.0); EOSINOPHILS # (AUTO) 0.5 K/uL (0.0-0.7); EOSINOPHILS % (AUTO) 7.3 % (0.0-7.0); HEMATOCRIT 38.6 % (31.2-41.9); LYMPHOCYTES # (AUTO) 2.3 K/uL (0.8-4.8); LYMPHOCYTES % (AUTO) 32.9 % (20.5-51.5); MEAN CORPUSCULAR HEMOGLOBIN 31.6 uug (24.7-32.8); MEAN CORPUSCULAR HGB CONC 34 g/dL (32.3-35.6); MEAN CORPUSCULAR VOLUME 93.7 fL (75.5-95.3); MONOCYTES # (AUTO) 0.5 K/uL (0.1-1.30); MONOCYTES % (AUTO) 7.2 % (0.0-11.0); NEUTROPHILS # (AUTO) 3.6 K/uL (1.8-8.9); NEUTROPHILS % (AUTO) 51.9 % (38.5-71.5); PLATELET COUNT (AUTO) 311 K/uL (179-408); RED BLOOD CELL COUNT(AUTO) 4.12 MIL/uL (3.63-4.92); RED CELL DISTRIBUTION WIDTH 13.5 % (12.3-17.7)
[2025-02-03 19:28] LABS: DIFFERENTIAL COMMENT 1
[2025-02-03 19:55] LABS: CALCIUM 10.4 mg/dL (8.5-10.1); CARBON DIOXIDE 25 mmol/L (21-32); CHLORIDE 101 mmol/L (98-107); CREATININE 1.5 mg/dL (0.6-1.3); GLUCOSE 79 mg/dL (74-106); POTASSIUM 5.2 mmol/L (3.5-5.1); SODIUM SERUM 138 mmol/L (136-145); UREA NITROGEN, BLOOD 41 mg/dL (7-18)
[2025-02-03 20:07] LABS: ALANINE AMINOTRANSFERASE 20 U/L (14-59); ALBUMIN 3.8 g/dL (3.4-5.0); ALKALINE PHOSPHATASE 48 U/L (50-136); ASPARTATE AMINOTRANSFERASE 20 U/L (15-37); BILIRUBIN,DIRECT 0.2 mg/dL (0.0-0.2); BILIRUBIN,TOTAL 0.9 mg/dL (0.2-1.0); LIPASE 94 U/L (16-77); NT-PRO BNP 71 pg/mL (0-125); TOTAL PROTEIN, SERUM 7.6 g/dL (6.4-8.2)
[2025-02-03 20:58] LABS: *BILIRUBIN,URIN NEGATIVE (NEGATIVE); *BLOOD, URINE NEGATIVE (NEGATIVE); *CLARITY,URINE CLEAR (CLEAR); *COLOR,URINE YELLOW (YELLOW); *KETONES,URINE 1+ (NEGATIVE); *PROTEIN,URINE NEGATIVE (NEGATIVE); *UROBILINOGEN,URINE 0.2 E.U./dl (NORMAL); LEUKOCYTE ESTERASE ,URINE NEGATIVE (NEGATIVE); NITRITE, URINE NEGATIVE (NEGATIVE); UGLUCOSE NEGATIVE (NEGATIVE)
[2025-02-03 21:12] LABS: BACTERIA,URINE FEW /HPF (NONE SEEN); RBC,URINE 0-3 /HPF (0-3); SQUAMOUS EPITHELIAL CELL,UR MODERATE /HPF (NONE SEEN); WBC,URINE 0-3 /HPF (0-3)
[2025-02-03] MEDS: IV NS 1000 ML 1,000 ML IV PRN (21:41)
[2025-02-03] MEDS ORDERED: DEXTROSE 50% 50 ML DISP.SYRIN IV PRN (21:45)
[2025-02-03] MEDS ORDERED: ACETAMINOPHEN 325 MG TABLET PO PRN (21:45)
[2025-02-03] MEDS ORDERED: ONDANSETRON 4 MG/2 ML VIAL IV PRN (21:45)
[2025-02-04] VITALS: BP 116/62; TEMP 97.7; O2SAT 95
[2025-02-04] MEDS: IV NS 1000 ML 1,000 ML IV SCH (00:10)
[2025-02-04 04:00] VITALS: BP 121/66; TEMP 97.8; O2SAT 96
[2025-02-04] MEDS: BLOOD SUGAR DIAGNOSTIC 1 EACH STRIP VI SCH (06:31)
[2025-02-04 06:44] LABS: BASOPHILS # (AUTO) 0.1 K/UL (0.0-0.2); BASOPHILS % (AUTO) 2.3 % (0.0-2.0); EOSINOPHILS # (AUTO) 0.7 K/uL (0.0-0.7); EOSINOPHILS % (AUTO) 12.1 % (0.0-7.0); HEMATOCRIT 35.6 % (31.2-41.9); HEMOGLOBIN 11.9 g/dL (10.9-14.3); LYMPHOCYTES # (AUTO) 2.3 K/uL (0.8-4.8); LYMPHOCYTES % (AUTO) 38.9 % (20.5-51.5); MEAN CORPUSCULAR HEMOGLOBIN 31.8 uug (24.7-32.8); MEAN CORPUSCULAR HGB CONC 34 g/dL (32.3-35.6); MEAN CORPUSCULAR VOLUME 94.8 fL (75.5-95.3); MONOCYTES # (AUTO) 0.4 K/uL (0.1-1.30); MONOCYTES % (AUTO) 7.1 % (0.0-11.0); NEUTROPHILS # (AUTO) 2.3 K/uL (1.8-8.9); NEUTROPHILS % (AUTO) 39.6 % (38.5-71.5); PLATELET COUNT (AUTO) 295 K/uL (179-408); RED BLOOD CELL COUNT(AUTO) 3.75 MIL/uL (3.63-4.92); RED CELL DISTRIBUTION WIDTH 13.3 % (12.3-17.7); WHITE BLOOD COUNT (AUTO) 5.9 K/uL (3.8-11.8)
[2025-02-04 06:46] LABS: DIFFERENTIAL COMMENT 1
[2025-02-04 06:56] LABS: CALCIUM 9.3 mg/dL (8.5-10.1); CARBON DIOXIDE 22 mmol/L (21-32); CHLORIDE 106 mmol/L (98-107); CREATININE 1.3 mg/dL (0.6-1.3); GLUCOSE 69 mg/dL (74-106); LIPASE 72 U/L (16-77); MAGNESIUM 1.7 mg/dL (1.8-2.4); PHOSPHOROUS 4.4 mg/dL (2.5-4.9); SODIUM SERUM 140 mmol/L (136-145); UREA NITROGEN, BLOOD 35 mg/dL (7-18)
[2025-02-04 07:50] VITALS: BP 111/56; TEMP 97.8; O2SAT 96
[2025-02-04] MEDS: PANTOPRAZOLE SODIUM 40 MG VIAL IV SCH (08:54)
[2025-02-04 11:42] VITALS: BP 119/53; TEMP 98.2; O2SAT 97
[2025-02-04] MEDS: MAGNESIUM OXIDE 400 MG TABLET PO ONE (11:48)
[2025-02-04] MEDS: INSULIN REGULAR, HUMAN 1000 UNIT/10 ML VIAL SQ PRN (11:50)
[2025-02-04 16:00] VITALS: BP 109/51; TEMP 98.3; O2SAT 96
[2025-02-04] MEDS: GLUCERNA SHAKE 237 ML CAN PO SCH (16:40)
[2025-02-04] MEDS ORDERED: LOSA50TA39 PO (18:00)
[2025-02-04] MEDS ORDERED: METF-440 PO (18:00)
[2025-02-04 19:33] VITALS: BP 149/59; TEMP 98.1; O2SAT 97
[2025-02-04] MEDS: LORATADINE 10 MG TABLET PO SCH (20:18)
[2025-02-04] MEDS: MELATONIN 3 MG TABLET PO SCH (20:18)
[2025-02-04] MEDS: INSULIN REGULAR, HUMAN 300 UNITS/3 ML VIAL SQ PRN (20:21)
[2025-02-04] MEDS: MAGNESIUM HYDROXIDE 30 ML LIQUID UDC PO PRN (22:15)
[2025-02-05 00:16] VITALS: BP 134/68; TEMP 98.8; O2SAT 97
[2025-02-05] MEDS: PANTOPRAZOLE SODIUM 40 MG TABLET.DR PO SCH (06:12)
[2025-02-05 06:38] VITALS: BP 144/71; TEMP 97.6; O2SAT 97
[2025-02-05 07:02] LABS: CARBON DIOXIDE 29 mmol/L (21-32); CHLORIDE 109 mmol/L (98-107); CREATININE 1.1 mg/dL (0.6-1.3); GLUCOSE 126 mg/dL (74-106); MAGNESIUM 1.7 mg/dL (1.8-2.4); POTASSIUM 4.9 mmol/L (3.5-5.1); SODIUM SERUM 145 mmol/L (136-145); UREA NITROGEN, BLOOD 21 mg/dL (7-18)
[2025-02-05 07:41] VITALS: BP 130/56; TEMP 98; O2SAT 97
[2025-02-05] MEDS: LOSARTAN POTASSIUM 50 MG TABLET PO SCH (08:13)
[2025-02-05] MEDS: MAGNESIUM OXIDE 400 MG TABLET PO ONE (11:22)
[2025-02-05 11:29] VITALS: BP 116/55; TEMP 98.2; O2SAT 98
[2025-02-05 14:57] VITALS: BP 119/53; TEMP 98.4; O2SAT 96
[2025-02-05] MEDS ORDERED: ATORVASTATIN 20 MG TABLET PO SCH (21:00)
== END 2025-02-05 15:15 | disposition home or self-care (01) | DRG 391 ==
LOC: ER 18:45 → TELE3 21:30
DX: K21.9 Gastro-esophageal reflux disease without esophagitis (principal); N17.0 Acute kidney failure with tubular necrosis; E86.0 Dehydration; Z95.1 Presence of aortocoronary bypass graft; Z79.84 Long term (current) use of oral hypoglycemic drugs; E11.9 Type 2 diabetes mellitus without complications; I25.10 Atherosclerotic heart disease of native coronary artery without angina pectoris; I10 Essential (primary) hypertension; R74.8 Abnormal levels of other serum enzymes; G89.29 Other chronic pain; E78.5 Hyperlipidemia, unspecified; F17.210 Nicotine dependence, cigarettes, uncomplicated; G20.C Parkinsonism, unspecified; Z79.899 Other long term (current) drug therapy; Z87.440 Personal history of urinary (tract) infections; Z86.16 Personal history of COVID-19; N20.0 Calculus of kidney
CPT/HCPCS: 36415; 71045; 76770; 83690; 83735; 84100; 84484; 85025; 85730; 93307; A6209; G0378; J1815; J2470; J7040

== ENCOUNTER 2025-03-18 11:38 | Inpatient (IN) | payer OTHER ==
[~2025-03-18] VITALS: Ht 142.2 cm; Wt 44.5 kg
[~2025-03-18 11:38] MED LIST changes: -CEPH500C2 PO; -FLUC200T PO; -LACT10SO58 PO; -LEVO500T90 PO; -LOSA100T31 PO; +LOSA50TA39 PO; +METF-440 PO; -METFORMIN PO; -NITR0.4T SL; -PANT40TA2 PO
[2025-03-18] MEDS ORDERED: PANT40TA49 PO (12:06)
[2025-03-18 13:01] LABS: *BILIRUBIN,URIN NEGATIVE (NEGATIVE); *BLOOD, URINE NEGATIVE (NEGATIVE); *CLARITY,URINE CLEAR (CLEAR); *COLOR,URINE YELLOW (YELLOW); *KETONES,URINE NEGATIVE (NEGATIVE); *PROTEIN,URINE 2+ (NEGATIVE); *UROBILINOGEN,URINE 0.2 E.U./dl (NORMAL); LEUKOCYTE ESTERASE ,URINE NEGATIVE (NEGATIVE); NITRITE, URINE NEGATIVE (NEGATIVE); PH,URINE 6.5 (5.0-8.0); UGLUCOSE TRACE (NEGATIVE)
[2025-03-18 13:03] LABS: BASOPHILS # (AUTO) 0.1 K/UL (0.0-0.2); EOSINOPHILS # (AUTO) 0.3 K/uL (0.0-0.7); EOSINOPHILS % (AUTO) 4.5 % (0.0-7.0); HEMATOCRIT 39.2 % (31.2-41.9); HEMOGLOBIN 13.1 g/dL (10.9-14.3); LYMPHOCYTES # (AUTO) 1.4 K/uL (0.8-4.8); LYMPHOCYTES % (AUTO) 20.6 % (20.5-51.5); MEAN CORPUSCULAR HEMOGLOBIN 31.4 uug (24.7-32.8); MEAN CORPUSCULAR HGB CONC 34 g/dL (32.3-35.6); MEAN CORPUSCULAR VOLUME 93.5 fL (75.5-95.3); MONOCYTES # (AUTO) 0.6 K/uL (0.1-1.30); MONOCYTES % (AUTO) 8.3 % (0.0-11.0); NEUTROPHILS # (AUTO) 4.4 K/uL (1.8-8.9); NEUTROPHILS % (AUTO) 65.6 % (38.5-71.5); PLATELET COUNT (AUTO) 276 K/uL (179-408); RED BLOOD CELL COUNT(AUTO) 4.19 MIL/uL (3.63-4.92); RED CELL DISTRIBUTION WIDTH 13.8 % (12.3-17.7); WHITE BLOOD COUNT (AUTO) 6.7 K/uL (3.8-11.8)
[2025-03-18 13:14] LABS: DIFFERENTIAL COMMENT 1
[2025-03-18] MEDS: IV NS 1000 ML 1,000 ML IV PRN (13:29)
[2025-03-18 13:31] LABS: BACTERIA,URINE MODERATE /HPF (NONE SEEN); SQUAMOUS EPITHELIAL CELL,UR MODERATE /HPF (NONE SEEN); WBC,URINE 0-3 /HPF (0-3)
[2025-03-18 13:45] LABS: CALCIUM 9.2 mg/dL (8.5-10.1); CARBON DIOXIDE 25 mmol/L (21-32); CHLORIDE 102 mmol/L (98-107); CREATININE 1.1 mg/dL (0.6-1.3); GLUCOSE 210 mg/dL (74-106); POTASSIUM 4.2 mmol/L (3.5-5.1); SODIUM SERUM 139 mmol/L (136-145); UREA NITROGEN, BLOOD 13 mg/dL (7-18)
[2025-03-18 13:58] LABS: ALANINE AMINOTRANSFERASE 18 U/L (14-59); ALBUMIN 3.7 g/dL (3.4-5.0); ALKALINE PHOSPHATASE 56 U/L (50-136); ASPARTATE AMINOTRANSFERASE 14 U/L (15-37); BILIRUBIN,DIRECT 0.1 mg/dL (0.0-0.2); BILIRUBIN,TOTAL 0.5 mg/dL (0.2-1.0); NT-PRO BNP 162 pg/mL (0-125); TOTAL PROTEIN, SERUM 7.6 g/dL (6.4-8.2)
[2025-03-18] MEDS ORDERED: LACT10SO3 PO (15:56)
[2025-03-18 16:00] VITALS: BP 125/71; TEMP 97.2; O2SAT 97
[2025-03-18] MEDS ORDERED: ONDANSETRON 4 MG/2 ML VIAL IV PRN (17:15)
[2025-03-18] MEDS ORDERED: CARVEDILOL 6.25 MG TABLET PO SCH (17:15)
[2025-03-18] MEDS ORDERED: ACETAMINOPHEN 325 MG TABLET PO PRN (17:15)
[2025-03-18] MEDS: METFORMIN HCL 500 MG TABLET PO SCH (18:08)
[2025-03-18 19:00] VITALS: BP 147/80; TEMP 98.4; O2SAT 98
[2025-03-18] MEDS ORDERED: DEXTROSE 50% 50 ML DISP.SYRIN IV PRN (19:45)
[2025-03-18] MEDS: CARVEDILOL 6.25 MG TABLET PO SCH (20:33)
[2025-03-18] MEDS: ATORVASTATIN 20 MG TABLET PO SCH (20:33)
[2025-03-18] MEDS: BLOOD SUGAR DIAGNOSTIC 1 EACH STRIP VI SCH (20:37)
[2025-03-18] MEDS: INSULIN REGULAR, HUMAN 1000 UNIT/10 ML VIAL SQ PRN (20:40)
[2025-03-18] MEDS: LACTULOSE 20 G/30 ML LIQUID UDC PO PRN (20:42)
[2025-03-19] VITALS: BP 128/67; TEMP 98.7; O2SAT 96
[2025-03-19] MEDS: ZOLPIDEM 5 MG TABLET PO PRN (00:18)
[2025-03-19 04:00] VITALS: BP 135/82; TEMP 98.5; O2SAT 96
[2025-03-19 06:57] LABS: BASOPHILS # (AUTO) 0.1 K/UL (0.0-0.2); BASOPHILS % (AUTO) 1.2 % (0.0-2.0); EOSINOPHILS # (AUTO) 0.3 K/uL (0.0-0.7); HEMATOCRIT 31.9 % (31.2-41.9); HEMOGLOBIN 10.9 g/dL (10.9-14.3); MEAN CORPUSCULAR HEMOGLOBIN 31.6 uug (24.7-32.8); MEAN CORPUSCULAR HGB CONC 34 g/dL (32.3-35.6); MEAN CORPUSCULAR VOLUME 92.4 fL (75.5-95.3); MONOCYTES # (AUTO) 0.6 K/uL (0.1-1.30); MONOCYTES % (AUTO) 11.1 % (0.0-11.0); NEUTROPHILS # (AUTO) 2.1 K/uL (1.8-8.9); NEUTROPHILS % (AUTO) 41.7 % (38.5-71.5); PLATELET COUNT (AUTO) 217 K/uL (179-408); RED BLOOD CELL COUNT(AUTO) 3.45 MIL/uL (3.63-4.92); RED CELL DISTRIBUTION WIDTH 13.7 % (12.3-17.7); WHITE BLOOD COUNT (AUTO) 5.1 K/uL (3.8-11.8)
[2025-03-19 07:10] LABS: DIFFERENTIAL COMMENT 1
[2025-03-19 07:20] LABS: THYROID STIMULATING HORMONE 1.953 mIU/mL (0.358-3.740)
[2025-03-19 07:33] VITALS: BP 149/82; TEMP 97.9; O2SAT 96
[2025-03-19 07:43] LABS: ALANINE AMINOTRANSFERASE 18 U/L (14-59); ALBUMIN 3.2 g/dL (3.4-5.0); ALKALINE PHOSPHATASE 46 U/L (50-136); ASPARTATE AMINOTRANSFERASE 17 U/L (15-37); BILIRUBIN,TOTAL 0.5 mg/dL (0.2-1.0); CALCIUM 8.5 mg/dL (8.5-10.1); CARBON DIOXIDE 24 mmol/L (21-32); CHLORIDE 105 mmol/L (98-107); CHOLESTEROL 172 mg/dL (<200); CREATININE 0.9 mg/dL (0.6-1.3); GLUCOSE 159 mg/dL (74-106); HDL CHOLESTEROL 64 mg/dL (40-60); MAGNESIUM 1.5 mg/dL (1.8-2.4); POTASSIUM 3.8 mmol/L (3.5-5.1); SODIUM SERUM 140 mmol/L (136-145); TOTAL PROTEIN, SERUM 6.8 g/dL (6.4-8.2); TRIGLYCERIDES 142 MG/DL (30-150); UREA NITROGEN, BLOOD 11 mg/dL (7-18)
[2025-03-19] MEDS: PANTOPRAZOLE SODIUM 40 MG TABLET.DR PO SCH (08:55)
[2025-03-19] MEDS: LOSARTAN POTASSIUM 50 MG TABLET PO SCH (08:56)
[2025-03-19] MEDS: MAGNESIUM SULFATE/D5W 100 ML IV SCH (10:23)
[2025-03-19 11:10] VITALS: BP 136/68; TEMP 98.2; O2SAT 97
[2025-03-19] MEDS ORDERED: Miconazole Nitrate Cream TOP (13:15)
[2025-03-19] MEDS: MICONAZOLE NITRATE CREAM 15 GM TUBE TOP SCH (13:54)
[2025-03-19 15:15] VITALS: BP 144/79; TEMP 98.3; O2SAT 98
== END 2025-03-19 18:30 | disposition home or self-care (01) | DRG 641 ==
LOC: ER 11:40 → TELE3 14:45 → MEDSURG3 03-19 09:00
PROVIDERS: ADMIT Internal Medicine; ATTEND Internal Medicine
DX: E86.0 Dehydration (principal); D68.59 Other primary thrombophilia; B37.31 Acute candidiasis of vulva and vagina; F17.210 Nicotine dependence, cigarettes, uncomplicated; E11.65 Type 2 diabetes mellitus with hyperglycemia; M15.9 Polyosteoarthritis, unspecified; I11.9 Hypertensive heart disease without heart failure; I70.0 Atherosclerosis of aorta; N20.0 Calculus of kidney; G20.C Parkinsonism, unspecified; F02.80 Dementia in other diseases classified elsewhere, unspecified severity, without behavioral disturbance, psychotic disturbance, mood disturbance, and anxiety; E83.42 Hypomagnesemia; I25.10 Atherosclerotic heart disease of native coronary artery without angina pectoris; Z74.09 Other reduced mobility; Z95.1 Presence of aortocoronary bypass graft; Z87.440 Personal history of urinary (tract) infections; Z79.84 Long term (current) use of oral hypoglycemic drugs
CPT/HCPCS: 36415; 71045; 83735; 84100; 84443; 85025; 87086; C1758; G0378; J1815; J3475; J7040